=== PATIENT | male | born 1995 | race Caucasian/White ===

== ENCOUNTER 2024-01-26 18:48 | Emergency (ER) | payer OTHER, SELFPAY ==
[2024-01-26 18:50] VITALS: BP 136/86; PULSE 91; RESP 18; TEMP 36.6; O2SAT 98; BMI 23.9
--- NOTE | 2024-01-26 19:10 | RAD_ITS ---
INDICATION: left index EXAMINATION/TECHNIQUE: X-RAY - LEFT HAND XR Fingers Min 2 Views COMPARISON: None. FINDINGS: No acute fracture or malalignment. No blastic or lytic lesions. No degenerative changes are seen. The soft tissues are unremarkable. RAD/Finger(s) Min 2 Views IMPRESSION: No acute radiographic abnormalities. Electronically Signed: Louis Song MD at 20:16 EDT ,
[2024-01-26] MEDS: Cefazolin 1 GM/50 ML BAG IV (19:23)
[2024-01-26] MEDS: Ketorolac 15 MG/ML Vial IV (19:23)
[2024-01-26 19:24] LABS: Absolute Lymphocyte Count 1.13 X10^3/uL (0.83-4.51); Absolute Neutrophil Count 7.6 X10^3/uL (2.0-7.7); Basophil# 0.03 X10^3/uL; Basophil% 0.3 % (0-1); Eosinophil# 0.07 X10^3/uL; Eosinophils% 0.7 % (0-5); Hematocrit 42.2 % (40-54); Hemoglobin 14.4 g/dL (13.0-16.5); Lymphocyte # 1.13 X10^3/ul (0.83-4.51); Lymphocyte % 11.9 % (19-41); Mean Corp Hgb Conc 34.1 g/dL (32-36); Mean Corpuscular Hgb 30.6 pg (27.0-32.0); Mean Corpuscular Volume 89.8 fL (80-94); Mean Platelet Vol. 9.9 fl (6.2-12.0); Monocyte# 0.69 X10^3/uL; Monocyte% 7.2 % (0-10); NRBC Flagged by Analyzer 0 % (0-5); Neutrophil # 7.57 X10^3/uL (2.7-7.7); Neutrophil % 79.6 % (47-70); Platelet Count 229 K/mm3 (150-450); RBC Distribution Width CV 12.2 % (11.6-14.6); RBC Distribution Width SD 40.3 fl (35.1-43.9); White Blood Count 9.5 K/mm3 (4.4-11.0)
--- NOTE | 2024-01-26 19:28 | EX.ED.UPPERE ---
HPI <CHARLI Hayes - Last Filed: 01/26/24 21:27> History of Present Illness Chief Complaint: Upper Extremity Injury Narrative Narrative: Patient is a 28-year-old male with no significant medical history presents to the emergency department concern of a left index finger infection. Patient states 9 days ago, he cut the left index finger diagonal on the palmar aspect going from the DIP joint through the medial aspect of the finger. This was sutured with 8 simple sutures from urgent care. Patient was there yesterday to get the sutures removed and also to have it rechecked. There was some redness and swelling, they were able to take out 6 of the 8 sutures. They started the patient on Augmentin. They also give the patient IM dose of antibiotics. Today, the patient states the redness is worse, it is going to the back of his hand, he is having difficulty moving his left index finger and is here for evaluation. PFSH <CHARLI Hayes - Last Filed: 01/26/24 21:27> [facility] Home Medications ?Medication ?Instructions ?Recorded ?Last Taken ?Type amoxicillin 875 mg-potassium 1 tab PO BID 01/26/24 Unknown History clavulanate 125 mg tablet Allergy/AdvReac Type Severity Reaction Status Date / Time No Known Allergies Allergy Verified 01/26/24 18:50 Social History Smoking Status: Never smoker ROS <CHARLI Hayes - Last Filed: 01/26/24 21:27> ROS ED ROS Narrative Constitutional: Negative for fever, weight loss, weakness. Positive for chills Eyes: Negative for vision loss, vision change, double vision ENT: Negative for any sore throat, ear pain, congestion Cardiovascular: Negative for any chest pain, tightness, palpitations Respiratory: Negative for any cough, sputum production, hemoptysis, dyspnea, dyspnea on exertion, orthopnea Gastrointestinal: Negative for any abdominal pain, nausea, vomiting, diarrhea, constipation, blood in stool, blood in vomit : Negative for any urinary frequency, dysuria, retention, blood in urine Muscle skeletal: Negative for any neck pain, back pain. Positive for left-sided hand pain Neurological: Negative for any headache, syncope, dizziness Skin: Negative for any rashes, itching, abrasions, lacerations Psychiatric: Negative for any depression, anxiety, stress, suicidal ideation, homicidal ideation Hematologic: Negative for any excessive bruising, easy bleeding EXAM <CHARLI Hayes - Last Filed: 01/26/24 21:27> Physical Exam Narrative Exam Narrative: Vital signs reviewed. HEET: Head normocephalic atraumatic, TMs clear bilaterally. Posterior pharynx is clear, moist mucous membranes. Nares clear bilaterally. Neck: Supple with no lymphadenopathy or tenderness. No signs of meningismus. Cardiac: Regular rate and rhythm no murmurs gallops or rubs, equal peripheral pulses bilaterally. Respiratory: Lungs clear to auscultation bilaterally. No chest tenderness. Abdomen: Soft, nontender, nondistended. No abdominal bruit or pulsatile masses. No hepatosplenomegaly Extremities: Patient does have obvious cellulitis to the left index finger, there is dorsal redness to the base of the second and third finger. Patient does have a healing laceration, there is some color change, erythema. When I manually push on the PIP joint to straighten the finger, the patient has significant amount of pain. +2 radial pulse. Neuro: Cranial nerves II through XII intact, no focal neurological deficits. Skin: Clean dry and intact with no rash, purpura, petechiae, vesicles or pustules. Backs/flank: No CVA tenderness, no midline spinal tenderness, no deformity. Psych: Normal mood and affect. No SI, HI or acute psychosis. Const Vital Signs: 01/26/24 18:50 Temperature 97.8 F Temperature Source Temporal Pulse Rate 91 Respiratory Rate 18 Blood Pressure 136/86 H Blood Pressure Mean 102 Pulse Ox 98 Oxygen Delivery Method Room Air [facility] <CHARLI Hayes - Last Filed: 01/26/24 21:27> [facility] Lab Data Labs: Laboratory Results - last 24 hr 01/26/24 19:15 WBC 9.5 RBC 4.70 Hgb 14.4 Hct 42.2 MCV 89.8 MCH 30.6 MCHC 34.1 RDW Std Deviation 40.3 RDW Coeff of Ayesha 12.2 Plt Count 229 MPV 9.9 Immature Gran % (Auto) 0.300 Neut % (Auto) 79.6 H Lymph % (Auto) 11.9 L [place] % (Auto) 7.2 Eos % (Auto) 0.7 Baso % (Auto) 0.3 Absolute Neuts (auto) 7.6 Absolute Lymphs (auto) 1.13 Nucleated RBC % 0 Treatment and Re-Evaluation Narrative: Differential diagnosis includes however is not limited to: Flexor tenosynovitis, cellulitis, abscess Patient does not appear to be septic, vital signs are stable, patient does look to be in mild amount of pain. Patient presents to the emergency department with concerns for worsening infection to his left index finger, left hand. Upon my initial evaluation, I am concerned for flexor tenosynovitis. Patient will be treated with IV Ancef, CBC BMP lactic, CRP, sed rate as well as an x-ray. Patient will be reevaluated. All radiologic examinations were read, reviewed by the emergency department attending. From these reads, a plan of care will be put in place. Patient's x-ray of the finger shows no acute radiographic abnormalities. Patient CBC was unremarkable, patient's chemistries were unremarkable, lactic acid was negative. Sed rate was 6 which is negative. CRP was elevated at 37. Secondary to for my concern of flexor tenosynovitis, not having any hand specialist here, the patient will be admitted to [facility]. I will reach out to the transfer center, I was given the hand plastics specialist. He recommended I send him to the [facility] ER for the residents to see him and evaluate. Spoke with Dr. Hinojosa at [facility] in the emergency department. She will accept the patient. Secondary to a delayed wait time and squats, the patient will take a private vehicle to the emergency department at [facility]. IV may be remain, patient struck to go straight to [facility] ER. Patient stable. <Dr. Foster Shaw, DO - Last Filed: 01/26/24 21:09> [facility] Narrative Medical decision making narrative: I have personally performed a face to face assessment of the patient and have reviewed the OSMAN Note. I performed a substantive portion of the visit including all aspects of the following. My puente findings include: History: Patient presents with redness and swelling to his left index finger. Patient cut his finger 11 days ago and had sutures placed at that time. Patient followed up 2 days ago and had the sutures removed. There is some redness and swelling at that time. Patient was started on Augmentin. Patient states the pain and swelling has gotten worse. Patient describes the pain as throbbing. Patient states it gets better with elevation and with Tylenol. Patient states it is worse with movement and palpation. Patient denies any paresthesias or weakness. Exam: Vital signs are stable. Patient is afebrile. Patient is in no acute distress. Musculoskeletal exam reveals tenderness, edema, and erythema of the left index finger. There is some erythema extending over to the middle finger. There is tenderness along the flexor tendon. There is diffuse swelling of the left index finger. There is pain with extension of the left index finger. There is no active discharge or drainage. Sensation was intact to light touch in all digits. Capillary refill was less than 2 seconds in all digits. Radial pulses are equal bilaterally. Medical Decision Making: Differential diagnosis includes flexor tenosynovitis, cellulitis, osteomyelitis, and wound infection. X-rays of the left index finger will be obtained to assess for osteomyelitis and retained foreign body. CBC will be obtained to assess for leukocytosis and anemia. Basic metabolic profile will be obtained to assess for electrolyte abnormality and renal function. Serum lactate will be obtained to assess for sepsis. CRP and sed rate will be obtained to assess for inflammatory markers. Patient was given a gram of Ancef here. Patient is given a dose of Toradol. X-rays of the left index finger were obtained. There are 3 views. On my independent interpretation, there is no acute fracture. There is no evidence of osteomyelitis. There is no soft tissue gas noted. There is some soft tissue swelling. Radiologist also interpreted the x-rays and agrees. CBC was reviewed and was within normal limits. Basic metabolic profile was reviewed and was essentially within normal limits. Sed rate was reviewed and was normal at 6. CRP was reviewed and was elevated at 37. Serum lactate was reviewed and was normal at 1.1. Due to the concern for flexor tenosynovitis, patient will need to be transferred to a facility where a hand surgeon can evaluate him. Patient preferred to go to [place]. Case was discussed with [facility]. Patient will be transferred there and seen in the emergency department. Patient understood and was agreeable with the plan. All questions were answered. Discharge Plan Triage Chief Complaint: Upper Extremity Injury ED Midlevel Provider: Klaus Dickinson ED Provider: Foster Shaw Dx/Rx/DC Orders Clinical Impression: Finger laceration, Cellulitis of finger, Synovitis of finger Prescriptions: No Action amoxicillin-pot clavulanate 875-125 mg tablet 1 tab PO BID Primary Care Provider: Care Physician,No Primary Referrals: Omid Armendariz MD [Non-Staff] - Print Language: Paraguayan Disposition Disposition: Acute Care Hospital Discharge Location: [facility]
[2024-01-26 19:41] LABS: Erythrocyte Sedimentation Rate 6 mm/hr (0-20)
[2024-01-26 19:50] LABS: Anion Gap 4 (5-15); BUN 13 mg/dL (7-18); BUN/Creat Ratio 15.4 RATIO (10-20); Calcium,Total 8.9 mg/dL (8.5-10.1); Chloride 107 mmol/L (98-107); Creatinine, Serum 0.84 mg/dL (0.70-1.30); EST Glomerular Filtration Rate 113 mL/min (>60); Est Glom Filt Rate - Afr Amer 137 mL/min (>60); Estimated Creatinine Clearance 142.42 ml/min; Glucose 125 mg/dL (74-106); Potassium 3.6 mmol/L (3.5-5.1); Sodium Level 139 mmol/L (136-145)
[2024-01-26 19:54] VITALS: BP 115/60; PULSE 66; RESP 18; TEMP 36.9; O2SAT 98
[2024-01-26 19:58] LABS: Lactic Acid 1.1 mmol/L (0.4-1.9)
[2024-01-26 20:00] VITALS: BP 111/68; PULSE 66; RESP 17; TEMP 37; O2SAT 99
[2024-01-26 21:00] VITALS: BP 109/69; PULSE 63; RESP 12; TEMP 37.2; O2SAT 99
--- NOTE | 2024-01-26 21:33 | ED.RN ---
REPORT CALLED TO [facility]. NO FURTHER QUESTIONS BY THE RECEIVING NURSE AT THIS TIME.
[2024-01-26 21:34] VITALS: BP 109/69; PULSE 63; RESP 12; TEMP 37.2; O2SAT 99
[2024-01-26 22:00] VITALS: BP 118/80; PULSE 79; RESP 16; TEMP 36.9; O2SAT 99
== END 2024-01-26 22:02 | disposition short-term general hospital (02) ==
PROVIDERS: Nurse Practitioner; Emergency Provider Emergency Medicine; Visit Provider Emergency Medicine
DX: S61.211A Laceration without foreign body of left index finger without damage to nail, initial encounter (principal); S66.111A Strain of flexor muscle, fascia and tendon of left index finger at wrist and hand level, initial encounter; W26.8XXA Contact with other sharp object(s), not elsewhere classified, initial encounter; L03.012 Cellulitis of left finger
CPT/HCPCS: 73140; 80048; 83605; 85025; 85652; 86140; 96365; 96375; 99284; J7050; A4216